=== PATIENT | female | born 1995 | race American Indian/Alaskan Native ===

== ENCOUNTER 2016-11-14 18:06 | Emergency (ER) | payer SELFPAY ==
[2016-11-14] MEDS ORDERED: Albuterol/Ipratropium 3.0-0.5 MG/3 ML Neb Soln ONE (18:18)
[2016-11-14] MEDS ORDERED: Albuterol/Ipratropium 3.0-0.5 MG/3 ML Neb Soln NEB ONE (18:19)
[2016-11-14] MEDS ORDERED: methylPREDNISolone Sodium Succinate 125 MG/2 ML SDV IM ONE (18:30)
[2016-11-14] MEDS ORDERED: Albuterol 0.083% 2.5 MG/3 ML Neb Soln NEB ONE (18:31)
--- NOTE | 2016-11-14 18:31 | EDM.PDOC ---
ED HISTORY OF PRESENT ILLNESS - General Chief Complaint: Respiratory Problem Stated Complaint: Asthma attack Time Seen by Provider: 11/14/16 18:20 Source of Information: Reports: Patient, RN notes reviewed History Limitations: Reports: No limitations - History of Present Illness INITIAL COMMENTS - FREE TEXT/NARRATIVE: 23 year old female presents to the ED with chief complaint of asthma attack. She had a sudden onset of shortness of breath and wheezing. She forgot her inhaler at home so she had no treatments prior to arrival. She has a known history of asthma. She is unsure what triggered this. She is typically well controlled. She was last on steroids about 4 years ago. No fever, chills, cough , or recent illness. Triage reports that on arrival the patient was tachypnic, dyspnic, sitting in tripod position, and had an oxygen saturation in the high 80s. Duoneb was ordered in triage. Respiratory therapy reports that patient was moving very little air initially but significantly improved after duoneb. - Related Data Allergies/ADRs: Allergies Allergy/AdvReac Type Severity Reaction Status Date / Time No Known Allergies Allergy Verified 11/14/16 18:14 Home Meds: Home Meds Albuterol [Proventil HFA] 2 puff INH Q4H PRN #1 inhaler 11/14/16 [Rx] predniSONE [Prednisone] 40 mg PO DAILY #10 tablet 11/14/16 [Rx] ED ROS GENERAL - Review of Systems Review Of Systems: See Below Constitutional: Reports: diaphoresis. Denies: fever, chills Respiratory: Reports: Shortness of Breath, Wheezing. Denies: Cough Cardiovascular: Reports: No symptoms. Denies: Chest pain ED EXAM, GENERAL - Physical Exam Exam: See Below Exam Limited By: No limitations General Appearance: alert, WD/WN, moderate distress Respiratory/Chest: decreased breath sounds, crackles, wheezing, accessory muscle use, other (I examined the patient after the duoneb was complete. She is no longer in tripod position. She is sitting in semi-fowlers. Her respiratory rate and sat have improved ) Cardiovascular: normal peripheral pulses, no edema, tachycardia Neurological: alert, normal cognition Skin Exam: Warm, Intact, Diaphoretic Course - Vital Signs Last Recorded V/S: Last Vital Signs Temp 98.6 F 11/14/16 18:11 Pulse 110 H 11/14/16 19:53 Resp 20 11/14/16 19:53 BP 137/93 H 11/14/16 19:53 Pulse Ox 96 11/14/16 19:53 - Orders/Labs/Meds Orders: Active Orders 24 hr Category Date Time Status RT Aerosol Therapy [RC] ASDIRECTED Care 11/14/16 18:19 Active Meds: Medications Discontinued Medications Generic Name Dose Route Start Last Admin Trade Name Suma PRN Reason Stop Dose Admin Albuterol 2.5 mg 11/14/16 18:31 11/14/16 18:32 Proventil Neb Soln NEB 11/14/16 18:32 2.5 mg ONETIME ONE Administration Albuterol Confirm 11/14/16 18:32 11/14/16 18:34 Proventil Neb Soln Administered 11/14/16 18:33 Not Given Dose 2.5 mg .ROUTE .STK-MED ONE Albuterol/Ipratropium Confirm 11/14/16 18:18 11/14/16 18:20 Duoneb 3.0-0.5 Mg/3 Ml Administered 11/14/16 18:19 3 ml Dose Administration 3 ml .ROUTE .STK-MED ONE Albuterol/Ipratropium 3 ml 11/14/16 18:19 11/14/16 18:20 Duoneb 3.0-0.5 Mg/3 Ml NEB 11/14/16 18:20 Not Given ONETIME ONE Methylprednisolone Sodium Succinate 125 mg 11/14/16 18:30 11/14/16 18:37 Solu-Medrol IM 11/14/16 18:31 125 mg ONETIME ONE Administration - Re-Assessments/Exams Free Text/Narrative Re-Assessment/Exam: Initial treatment in Triage included Duoneb. The patient had moderate improvement with Duoneb. An albuterol treatment was then given shortly after the Duoneb. Solu-medrol 125mg IM also administered. The patient was monitored for close to two hours total. Her lung sounds became clear with good air movement and wheezing resolved. Her Sao2 improved to 95-99% on room air. Chest x -ray was normal. No pulmonary infiltrates or effusions. She lives in [facility] and does not have her inhaler with her. She will be prescribed an albuterol inhaler and prednisone burst. Educated on return precautions. Discharge instructions as documented. Departure - Departure Time of Disposition: 19:24 Disposition: Home, Self-Care 01 Condition: good Clinical Impression: Exacerbation of asthma Prescriptions: Albuterol [Proventil HFA] 2 puff INH Q4H PRN #1 inhaler PRN Reason: Shortness Of Breath predniSONE [Prednisone] 40 mg PO DAILY #10 tablet Instructions: Asthma, Adult Referrals: PCP,None [Primary Care Provider] - Forms: ED Department Discharge Additional Instructions: Prednisone 40mg daily for 5 days, start tomorrow morning Albuterol inhaler every 4 hours as needed Return to ER if symptoms worsen
[2016-11-14] MEDS ORDERED: Albuterol 0.083% 2.5 MG/3 ML Neb Soln ONE (18:32)
[2016-11-14 21:24] VITALS: BP 137/93
--- NOTE | 2016-11-15 10:53 | CR ---
Chest: Portable view of the chest was obtained. Comparison: No previous study. Heart size and mediastinum are normal. Lungs are clear. Mild scoliosis is seen within the spine. Impression: 1. Mild scoliosis is noted. Nothing acute is identified on portable chest x-ray. Diagnostic code #2
== END 2016-11-14 19:53 | disposition home or self-care (01) ==
LOC: EDBD 18:06 → JD.ED 18:06
DX: J45.901 Unspecified asthma with (acute) exacerbation (principal); Z79.899 Other long term (current) drug therapy
CPT/HCPCS: 71010; 94640; 94664; 96372; 99285; J2930; 99284